=== PATIENT | male | born 1995 | race Caucasian/White ===

== ENCOUNTER 2017-01-13 16:56 | Emergency (ER) | payer OTHER ==
[~2017-01-13] VITALS: Ht 144.8 cm; Wt 64.0 kg
[2017-01-13 17:14] VITALS: BP 130/78
--- NOTE | 2017-01-13 19:02 | NUR ---
Patient ambulated to bed 7. RN evaluating patient at bedside.
--- NOTE | 2017-01-13 19:11 | NUR ---
Dr. Torres evaluating patient at bedside.
[2017-01-13] MEDS ORDERED: DEXAMETHASONE 4 MG TAB PO ONE (19:15)
[2017-01-13] MEDS ORDERED: METOCLOPRAMIDE 10 MG TAB PO ONE (19:15)
--- NOTE | 2017-01-13 19:36 | NUR ---
REPORT GIVEN RN PIN
--- NOTE | 2017-01-13 19:52 | NUR ---
21Y/M PATIENT PRESENTS TO ED WITH C/O N/V X 3 DAYS. PT STATES BODY ACHE WITH N//V X 3 DAYS, NO FEVER . DENIES DIARRHEA; SKIN IS PINK/WARM/DRY; AAOX4 WITH EVEN AND STEADY GAIT; LUNGS CLEAR BL; HR EVEN AND REGULAR; PT DENIES ANY FEVER, CP, SOB, OR COUGH AT THIS TIME; PATIENT STATES PAIN OF 7/10 AT THIS TIME; VSS; PATIENT POSITIONED FOR COMFORT; HOB ELEVATED; BEDRAILS UP X2; BED DOWN. ER MD MADE AWARE OF PT STATUS.
--- NOTE | 2017-01-13 20:15 | NUR ---
Patient discharged with v/s stable. Written and verbal after care instructions given and explained. Patient alert, oriented and verbalized understanding of instructions. Ambulatory with steady gait. All questions addressed prior to discharge. ID band removed. Patient advised to follow up with PMD. Rx of EXCEDRIN EXTRA STRENGTH, ZOFRAN 4 MG given. Patient educated on indication of medication including possible reaction and side effects. Opportunity to ask questions provided and answered.
[2017-01-13 21:15] VITALS: BP 125/75
== END 2017-01-13 20:15 | disposition home or self-care (01) ==
LOC: MED 16:56
DX: R51 Headache (principal); R11.2 Nausea with vomiting, unspecified
CPT/HCPCS: 99284; J8597; Q0163

== ENCOUNTER 2019-05-22 14:26 | Emergency (ER) | payer SELFPAY ==
[~2019-05-22] VITALS: Ht 167.6 cm; Wt 57.2 kg
[2019-05-22 14:51] VITALS: BP 144/80
[2019-05-22] MEDS ORDERED: AMOX500C25 PO (14:57)
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
--- NOTE | 2019-05-22 15:53 | NUR ---
PT AMBULATED TO ER BED 1
[2019-05-22] MEDS ORDERED: KETOROLAC 30 MG/ML VIAL IM ONE (16:05)
[2019-05-22] MEDS ORDERED: HYDROcodone/APAP 5/325 MG 1 TAB TAB PO ONE (16:05)
[2019-05-22] MEDS ORDERED: ONDANSETRON 4 MG ODT PO ONE (16:05)
[2019-05-22 16:28] VITALS: BP 128/72
--- NOTE | 2019-05-22 16:29 | NUR ---
Patient discharged with v/s stable. Written and verbal after care instructions given and explained. Patient verbalized understanding. Ambulatory with steady gait. All questions addressed prior to discharge. Advised to follow up with PMD.
== END 2019-05-22 16:29 | disposition home or self-care (01) ==
LOC: MED 14:26
DX: K08.89 Other specified disorders of teeth and supporting structures (principal); Z79.2 Long term (current) use of antibiotics
CPT/HCPCS: 96372; 99283; J1885; Q0162

== ENCOUNTER 2021-03-23 18:28 | Emergency (ER) | payer OTHER ==
[~2021-03-23] VITALS: Ht 170.2 cm; Wt 54.0 kg
[~2021-03-23 18:28] MED LIST: AMOX500C25 PO
[2021-03-23 18:34] VITALS: BP 134/86
--- NOTE | 2021-03-23 18:39 | NUR ---
Patient ambulated to bed 03 with steady/even gait.
--- NOTE | 2021-03-23 18:40 | NUR ---
NICK Ch is evaluating patient at bedside.
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
[2021-03-23] MEDS ORDERED: KETOROLAC 30 MG/ML VIAL IM ONE (18:45)
[2021-03-23] MEDS ORDERED: BACITRACIN OINT 500 UNITS/GM PKT TP ONE ×2 (18:50→18:51)
[2021-03-23] MEDS ORDERED: BACI1PAC6 TP (18:50)
[2021-03-23] MEDS ORDERED: IBUP-1842 PO (18:50)
[2021-03-23] MEDS ORDERED: CEPH-588 PO (18:50)
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
--- NOTE | 2021-03-23 18:55 | NUR ---
TDAP consent form received
--- NOTE | 2021-03-23 19:00 | NUR ---
Pt states minor relief; rates pain 9/10 at this time. Juice provided per request.
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
--- NOTE | 2021-03-23 19:31 | NUR ---
[facility] [facility] AT BEDSIDE.
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
--- NOTE | 2021-03-23 20:15 | NUR ---
Patient discharged with v/s stable. Written and verbal after care instructions given and explained. Patient alert, oriented and verbalized understanding of instructions. Ambulatory with steady gait. All questions addressed prior to discharge. ID band removed. Patient advised to follow up with PMD. Rx of bacitracin, motrin, and keflex given. Patient educated on indication of medication including possible reaction and side effects. Opportunity to ask questions provided and answered.
== END 2021-03-23 20:15 | disposition home or self-care (01) ==
LOC: MED 18:28
DX: S01.83XA Puncture wound without foreign body of other part of head, initial encounter (principal); S10.91XA Abrasion of unspecified part of neck, initial encounter; Z79.899 Other long term (current) drug therapy; Y07.01 Husband, perpetrator of maltreatment and neglect; Y93.89 Activity, other specified; Y92.89 Other specified places as the place of occurrence of the external cause; Y99.8 Other external cause status
CPT/HCPCS: 90471; 90715; 96372; 99284; J1885